=== PATIENT | female | born 1985 | race Hispanic/Latino ===

== ENCOUNTER 2020-01-15 09:30 | Emergency (ER) | payer BC ==
[2020-01-15] MEDS ORDERED: ASPIRIN 325 MG TABLET ONE (09:39)
[2020-01-15 09:46] LABS: BASOPHILS % (AUTO) 0.3 % (0.0-5.0); EOSINOPHILS % (AUTO) 1.6 % (0.0-8.0); HEMATOCRIT 35.6 % (36-48); LYMPHOCYTES % (AUTO) 17.1 % (21.0-51.0); MEAN CORPUSCULAR HEMOGLOBIN 23.1 pg (27.0-33.0); MEAN CORPUSCULAR HGB CONC 31.5 g/dL (32.0-36.0); MEAN CORPUSCULAR VOLUME 73.6 fL (79-99); MONOCYTES % (AUTO) 5.6 % (3.0-13.0); NEUTROPHILS % (AUTO) 74.6 % (40.0-77.0); PLATELET COUNT (AUTO) 340 K/uL (130-400); RED BLOOD CELL COUNT(AUTO) 4.84 MIL/uL (4.00-5.50); RED CELL DISTRIBUTION WIDTH 16.1 % (11.0-15.5); WHITE BLOOD COUNT (AUTO) 12.3 K/uL (4.8-10.8)
[2020-01-15 09:58] LABS: CREATININE 0.8 mg/dL (0.5-1.5); POTASSIUM 3.9 mmol/L (3.5-5.1)
[2020-01-15 10:03] LABS: ALBUMIN 3.9 g/dL (3.5-5.0); BILIRUBIN,TOTAL 0.5 mg/dL (0.2-1.0); TOTAL PROTEIN, SERUM 8.6 g/dL (6.0-8.3)
[2020-01-15 10:22] LABS: INR 0.91 (0.85-1.15); PARTIAL THROMBOPLASTIN TIME 30.2 SEC (26.3-35.5); PROTHROMBIN TIME 9.9 SEC (9.6-11.6)
[2020-01-15] MEDS ORDERED: KETOROLAC TROMETHAMINE 30MG/ML ONE (11:00)
[2020-01-15] MEDS ORDERED: BENZONATATE 100 MG CAPSULE PO ONE (11:02)
[2020-01-15] MEDS ORDERED: ACETAMINOPHEN EXTRA STRENGTH 500 MG TABLET ONE (11:02)
== END 2020-01-15 12:42 | disposition home or self-care (01) ==
LOC: EDH 09:30
DX: J06.9 Acute upper respiratory infection, unspecified (principal); R07.81 Pleurodynia; R05 Cough; E11.9 Type 2 diabetes mellitus without complications; Z98.890 Other specified postprocedural states
CPT/HCPCS: 36415; 71045; 80053; 81025; 82550; 84484; 85025; 85610; 85730; 93005; 96374; 99285; J1885

== ENCOUNTER → 2022-06-13 | Outpatient (CLI) | payer BC ==
[~2022-06-13] MED LIST: CHRM1TAB PO; CRAN200C PO; EMPA25TA PO; GADOTERATE MEGLUMINE 10 MMOL/20 ML VIAL IV ONE; GLIM4TAB36 PO; INSU3INS3 SQ; LEVO-70 PO; METF500S9 PO; SEMA1PEN3 SQ; TUME1CAP PO
== END | disposition home or self-care (01) ==
LOC: RAH 05-30 12:47
PROVIDERS: ATTEND Student in an Organized Health Care Education/Training Program
DX: D24.2 Benign neoplasm of left breast (principal); N63.24 Unspecified lump in the left breast, lower inner quadrant; N64.4 Mastodynia
CPT/HCPCS: 77049; A9575

== ENCOUNTER → 2022-07-12 | Outpatient (CLI) | payer BC ==
[~2022-07-12] MED LIST changes: -GADOTERATE MEGLUMINE 10 MMOL/20 ML VIAL IV ONE
[2022-07-12 10:01] LABS: INR 0.98 (0.85-1.15); PROTHROMBIN TIME 10.7 SEC (9.6-11.6)
[2022-07-12 10:03] LABS: PARTIAL THROMBOPLASTIN TIME 33.3 SEC (26.3-35.5)
== END | disposition home or self-care (01) ==
LOC: RAH 08:58
PROVIDERS: ATTEND Student in an Organized Health Care Education/Training Program
DX: N63.24 Unspecified lump in the left breast, lower inner quadrant (principal); N64.89 Other specified disorders of breast; Z79.01 Long term (current) use of anticoagulants
CPT/HCPCS: 19083; 85610; 85730; 36415; A4215 ×3